=== PATIENT | female | born 1935 | race Caucasian/White ===

== ENCOUNTER 2022-09-07 14:14 | Inpatient (IN) ==
[2022-09-07 19:17] LABS: ABS Lymphocytes 0.9 10^3/ul (1.0-4.8); ABS Monocytes 0.8 10^3/ul (0-0.8); ABS Neutrophils 12.6 10^3/ul (1.5-7.7); Eosinophil % 0.1 %; Hematocrit 39 % (35-47); Hemoglobin 12.7 g/dL (12.0-16.0); Lymphocyte % 6.2 %; Mean Corpuscular HGB Conc 33 g/dL (31-36); Mean Corpuscular Hemoglobin 33 pg (27-31); Mean Corpuscular Volume 99 fL (80-97); Mean Platelet Volume 7.6 fL (7.4-10.4); Nucleated Red Blood Cells % 0.1; Platelet Count 199 10^3/uL (150-450); Red Blood Count 3.88 10^6 /uL (3.70-4.87); Red Cell Distribution Width 15 % (10-15); White Blood Count 14.3 10^3/uL (3.5-10.8)
[2022-09-07 19:29] LABS: Activated Partial Thrombo Time 35.4 seconds (26.0-38.0); INR 1.83 (0.89-1.11)
[2022-09-07 19:46] LABS: Albumin 3.8 g/dL (3.2-5.2); Calcium 9.6 mg/dL (8.6-10.3); Potassium 4.5 mmol/L (3.5-5.0); Total Bilirubin 1.9 mg/dL (0.2-1.0)
[2022-09-07 19:52] LABS: Albumin/Globulin Ratio 1.6 (1-3); C Reactive Protein 18.96 mg/L (<8.01); Globulin 2.4 g/dL (2-4); Total Protein 6.2 g/dL (6.4-8.9); eGFR CKD-EPI 26.8 (>60)
[2022-09-07 21:00] LABS: High Sensitivity Troponin 1 Hr 12 pg/mL (<15)
[2022-09-08] MEDS ORDERED: Morphine 4 MG/ML VIAL (1 ml) IV ONE (00:15)
[2022-09-08] MEDS ORDERED: oxyCODONE/Acetamin 5/325 mg TAB PO ONE (00:16)
[2022-09-08 01:36] LABS: Urine Appearance Turbid; Urine Bilirubin Negative (Negative); Urine Blood 1+ (Negative); Urine Color Yellow; Urine Glucose Negative (Negative); Urine Ketones Negative (Negative); Urine Nitrite Negative (Negative); Urine Protein Negative (Negative); Urine Specific Gravity 1.014 (1.002-1.030); Urine Urobilinogen Negative (Negative)
[2022-09-08 01:47] LABS: Urine Bacteria 3+ (Absent); Urine Red Blood Cell 2+(6-10/hpf) (Absent); Urine Squamous Epithelial Cell Present (Absent); Urine White Blood Cell 3+(>20/hpf) (Absent)
[2022-09-08] MEDS ORDERED: Senna TAB 8.6 mg TAB PO PRN (02:28)
[2022-09-08] MEDS ORDERED: Polyethylene Glycol 3350 17 GM PACKET PO PRN (02:28)
[2022-09-08] MEDS ORDERED: Magnesium Hydroxide LIQ 30 ML UDC PO PRN (02:28)
[2022-09-08] MEDS ORDERED: NS 0.9% 1000 ml BAG 1,000 ML IV SCH (02:45)
[2022-09-08 03:25] LABS: Direct Bilirubin 0.4 mg/dL (0.03-0.18); Indirect Bilirubin 1.5 mg/dL (0.3-1.0)
[2022-09-08 07:54] LABS: Calcium 9.4 mg/dL (8.6-10.3); Potassium 4.3 mmol/L (3.5-5.0); eGFR CKD-EPI 29.7 (>60)
[2022-09-08 08:41] LABS: ABS Lymphocytes 1.2 10^3/ul (1.0-4.8); ABS Neutrophils 10.3 10^3/ul (1.5-7.7); Eosinophil % 0.3 %; Hematocrit 36 % (35-47); Hemoglobin 12.3 g/dL (12.0-16.0); Lymphocyte % 9.7 %; Mean Corpuscular HGB Conc 34 g/dL (31-36); Mean Corpuscular Hemoglobin 34 pg (27-31); Mean Corpuscular Volume 98 fL (80-97); Mean Platelet Volume 7.4 fL (7.4-10.4); Platelet Count 164 10^3/uL (150-450); Red Blood Count 3.67 10^6 /uL (3.70-4.87); Red Cell Distribution Width 15 % (10-15); White Blood Count 12.6 10^3/uL (3.5-10.8)
[2022-09-08] MEDS ORDERED: Lactated Ringers 1000 ml BAG 1,000 ML IV SCH (09:00)
[2022-09-08] MEDS: cefTRIAXone 1 gm/50 mL D5W 1 GM/50 ML BAG IV SCH (10:13)
[2022-09-08 11:37] LABS: Erythrocyte Sed Rate 40 mm/Hr (0-29)
[2022-09-09 06:44] LABS: ABS Eosinophils 0.1 10^3/ul (0-0.6); ABS Lymphocytes 1.4 10^3/ul (1.0-4.8); ABS Monocytes 0.7 10^3/ul (0-0.8); ABS Neutrophils 7.5 10^3/ul (1.5-7.7); Eosinophil % 1.2 %; Hematocrit 33 % (35-47); Hemoglobin 11.5 g/dL (12.0-16.0); Lymphocyte % 14.7 %; Mean Corpuscular HGB Conc 35 g/dL (31-36); Mean Corpuscular Hemoglobin 34 pg (27-31); Mean Corpuscular Volume 97 fL (80-97); Mean Platelet Volume 7.8 fL (7.4-10.4); Platelet Count 185 10^3/uL (150-450); Red Blood Count 3.41 10^6 /uL (3.70-4.87); Red Cell Distribution Width 15 % (10-15); White Blood Count 9.8 10^3/uL (3.5-10.8)
[2022-09-09 07:36] LABS: C Reactive Protein 25.06 mg/L (<8.01); Calcium 8.7 mg/dL (8.6-10.3); Potassium 3.8 mmol/L (3.5-5.0)
[2022-09-09 10:19] LABS: eGFR CKD-EPI 41.3 (>60)
[2022-09-09] MEDS: cefTRIAXone 1 gm/50 mL D5W 1 GM/50 ML BAG IV SCH (10:49)
[2022-09-10] MEDS: cefTRIAXone 1 gm/50 mL D5W 1 GM/50 ML BAG IV SCH (10:59)
[2022-09-10] MEDS ORDERED: NS 0.9% 500 ml BAG 500 ML IV ONE (11:25)
[2022-09-10 12:03] LABS: Hematocrit 35 % (35-47); Hemoglobin 11.9 g/dL (12.0-16.0); Mean Corpuscular HGB Conc 34 g/dL (31-36); Mean Corpuscular Hemoglobin 33 pg (27-31); Mean Corpuscular Volume 97 fL (80-97); Mean Platelet Volume 7.4 fL (7.4-10.4); Platelet Count 226 10^3/uL (150-450); Red Blood Count 3.65 10^6 /uL (3.70-4.87); Red Cell Distribution Width 15 % (10-15); White Blood Count 10.1 10^3/uL (3.5-10.8)
[2022-09-10 12:43] LABS: Potassium 4.1 mmol/L (3.5-5.0); eGFR CKD-EPI 53.9 (>60)
[2022-09-12 11:59] VITALS: BP 136/87
== END 2022-09-12 13:45 | DRG 872 ==
LOC: ED 14:14 → MED 14:14 → SUATTDRO 09-08 14:14
PROVIDERS: ADMIT Internal Medicine; ATTEND Internal Medicine